=== PATIENT | male | born 1990 | race Caucasian/White ===

== ENCOUNTER 2017-06-07 17:42 | Emergency (ER) | payer OTHER, MEDICAID, SELFPAY ==
[2017-06-07 18:15] VITALS: BMI 33.5
--- NOTE | 2017-06-07 18:16 | XR_ITS ---
XR chest 2V Ordering Physician: Juanita Ray MD Patient Age: 27 years: Male HISTORY: ITS.REASON: chest pain chest discomfort pain TECHNIQUE: PA and lateral chest COMPARISON : No previous studies for comparison FINDINGS . No pneumothorax. No pleural effusion. Lungs well expanded and clear with no active disease. Heart mahogany and mediastinal structures satisfactory. . No acute chest wall findings and T-spine intact. I would only note that the first ribs bilaterally do take slightly medial course bilaterally. Doubt of significance but could contribute to thoracic outlet syndrome if symptoms of such are present IMPRESSION: No active disease No acute pulmonary findings . No pneumothorax nor pleural effusion Lungs clear. . . Minor observations in text
[2017-06-07 18:45] LABS: Basophils % 0.3 % (0.1-2.0); Eosinophils # 0.1 K/mm3 (0.0-0.4); Eosinophils % 1.1 % (0.1-12.0); Hematocrit 49.5 % (42.0-52.0); Hemoglobin 17.1 g/dL (14.1-18.0); Lymphocytes # 3.4 K/mm3 (0.7-4.5); Lymphocytes % 28.6 K/mm3 (10-50); Mean Corpuscular HGB Conc 34.6 g/dL (31.8-35.4); Mean Corpuscular Hemoglobin 29.4 pg (27.0-31.2); Mean Corpuscular Volume 85.1 fl (80-94); Mean Platelet Volume 8.1 fl (7.4-10.4); Monocytes # 0.7 K/mm3 (0.1-1.0); Monocytes % 5.9 % (1.7-9.3); Neutrophils # 7.7 K/mm3 (1.8-7.8); Neutrophils % 64.2 % (37.0-80.0); Platelet Count 226 K/mm3 (142-424); Red Blood Count 5.83 M/mm3 (4.60-6.20); Red Cell Distribution Width 12.6 % (11.5-17.5); White Blood Count 11.9 K/mm3 (4.8-10.8)
[2017-06-07 19:12] VITALS: BP 137/85; PULSE 87; RESP 18; TEMP 36.9; O2SAT 94; BMI 33.5
[2017-06-07 19:13] LABS: Alanine Aminotransferase 37 U/L (12-78); Albumin Level 4.3 gm/dL (3.4-5.0); Albumin/Globulin Ratio 1.3 (1.1-1.8); Alkaline Phosphatase 98 U/L (46-116); Anion Gap 12.8 mEq/L (5-15); Aspartate Amino Transferase 27 U/L (15-37); Bilirubin,Total 0.5 mg/dL (0.2-1.0); Blood Urea Nitrogen 13 mg/dL (7-18); CKMB Relative Index 1.5 U/L (0-4.0); Calcium 9.2 mg/dL (8.5-10.1); Carbon Dioxide 29 mmol/L (21.0-32.0); Chloride 102 mmol/L (98-107); Creatine Kinase 401 U/L (39-308); Creatine Kinase MB 6.1 mg/ml (0.0-3.6); Creatinine Clearance Estimated 157 mL/min (0-300); Creatinine,Serum 1.11 mg/dL (0.70-1.30); Estimated Glomerular Filt Rate 81 ml/min (>60); GFR (African American) 98 ML/MIN (>60); Globulin 3.2 gm/dl (1.3-3.2); Glucose 102 mg/dL (74-106); Potassium 3.8 mmoL/L (3.5-5.1); Sodium 140 mmol/L (136-145); Total Protein,Serum 7.5 gm/dL (6.4-8.2); Troponin I < 0.02 ng/ml (0.00-0.06)
--- NOTE | 2017-06-07 19:48 | [facility].EDCP ---
ED Disposition Clinical Impression: Atypical chest pain Disposition: Home, Self-Care Condition on Discharge: Good Instructions: DI for Atypical Chest Pain Additional Instructions: Rx Naproxen, recommend smoking cessation; see your nurse practitioner for follow up next week for recheck Referrals: Sonam Draper [Primary Care Provider] - - Critical Care Critical Care Time: No Attestation: On 06/07/17, the high probability of a clinically significant, sudden or life threatening deterioration of the following system(s) required my full and direct attention, intervention and personal management. The time I documented below is in addition to time spent performing reported procedures but includes the following listed in this critical care notation. Medical Decision Making Vital Signs: 06/07/17 19:12 06/07/17 20:08 Temperature 98.5 F Temperature Source Oral Pulse Rate 68 Pulse Rate [Left Brachial] 87 Respiratory Rate 18 20 Blood Pressure 121/75 Blood Pressure [Left Arm] 137/85 Blood Pressure Mean [Left Arm] 102 Blood Pressure Source Automatic Cuff Blood Pressure Source [Left Arm] Automatic Cuff Blood Pressure Position Sitting Blood Pressure Position [Left Arm] Sitting 02 Sat by Pulse Oximetry 94 L Oxygen Delivery Method Room Air Room Air - Lab Data Lab Results 06/07/17 18:30: WBC 11.9 H, RBC 5.83, Hgb 17.1, Hct 49.5, MCV 85.1, MCH 29.4, MCHC 34.6, RDW 12.6, Plt Count 226, MPV 8.1, Neut % (Auto) 64.2, Lymph % (Auto) 28.6, [place] % (Auto) 5.9, Eos % (Auto) 1.1, Baso % (Auto) 0.3, Neut # (Auto) 7.7, Lymph # (Auto) 3.4, [place] # (Auto) 0.7, Eos # (Auto) 0.1, Baso # (Auto) 0.0 06/07/17 18:30: Sodium 140, Potassium 3.8, Chloride 102, Carbon Dioxide 29, Anion Gap 12.8, BUN 13, Creatinine 1.11, Estimated Creat Clear 157, Estimated GFR 81, Est GFR ( Amer) 98, Glucose 102, Calcium 9.2, Total Bilirubin 0.5, AST 27, ALT 37, Alkaline Phosphatase 98, Total Creatine Kinase 401 H, CK-MB (CK-2) 6.1 H, CK-MB (CK-2) Rel Index 1.5, Troponin I < 0.02, Total Protein 7.5, Albumin 4.3, Globulin 3.2, Albumin/Globulin Ratio 1.3 Result diagrams: 06/07/17 18:30 06/07/17 18:30 - Radiology Data #1 Image(s): Chest Image Reviewed: Yes I reviewed the patient's radiology results, Yes I have reviewed radiologist's interpretation Preliminary Findings: Normal/NAD, No Infiltrates Seen, Normal Lung Inflation Hill, Normal Heart Size - ECG Data Tracing #1 I reviewed this ECG and interpreted as documented below: EKG normal sinus rhythm rate of 79 normal axis and intervals. No ectopy. No hypertrophy. ECG normal with no acute: arrhythmias, ischemia, conduction abnormalities, chamber hypertrophy (normal EKG) - Nate Inquiry Pt receiving controlled substance: No Chest Pain HPI - General Chief Complaint: Chest Pain Stated Complaint: Chest Pains for 2 Weeks Mode of Arrival: Ambulatory Limitations: No Limitations Description of Symptoms (Recalled from ER Triage Doc. by RN): chest pain x2 weeks; radiates to bilateral arms intermittantly; 2 ppd smoker - History of Present Illness HPI narrative: Atypical and positional musculoskeletal type chest pain to the left upper extremity ?2 weeks. Only cardiac risk factor is a heavy smoker. He has a chronic cough with no hemoptysis. No new cough. He is worried about pneumonia. No fever or chills. No symptoms. No vomiting. No diaphoresis. No shortness of breath dyspnea on exertion or calf pain. MD complaint: other (Sternal chest pain for the past 2 weeks. No fever or sputum production. Has chronic cough and is a heavy smoker at 2-1/2 packs per day. He is worried about pneumonia.) Duration: constant Pain location: left chest Severity: mild Quality: dull Pain radiation: LUE Relieving factors: rest Exacerbating factors: movement Treatments prior to or on arrival for Cardiac Chest Pain: none - Related Data Home Medications Medication Instructions Recorded Conf
--- NOTE | 2017-06-07 19:52 | ED_ITS ---
ED Disposition Clinical Impression: Atypical chest pain Disposition: Home, Self-Care Condition on Discharge: Good Instructions: DI for Atypical Chest Pain Additional Instructions: Rx Naproxen, recommend smoking cessation; see your nurse practitioner for follow up next week for recheck Referrals: Sonam Draper [Primary Care Provider] - - Critical Care Critical Care Time: No Attestation: On 06/07/17, the high probability of a clinically significant, sudden or life threatening deterioration of the following system(s) required my full and direct attention, intervention and personal management. The time I documented below is in addition to time spent performing reported procedures but includes the following listed in this critical care notation. Medical Decision Making Vital Signs: 06/07/17 19:12 06/07/17 20:08 Temperature 98.5 F Temperature Source Oral Pulse Rate 68 Pulse Rate [Left Brachial] 87 Respiratory Rate 18 20 Blood Pressure 121/75 Blood Pressure [Left Arm] 137/85 Blood Pressure Mean [Left Arm] 102 Blood Pressure Source Automatic Cuff Blood Pressure Source [Left Arm] Automatic Cuff Blood Pressure Position Sitting Blood Pressure Position [Left Arm] Sitting 02 Sat by Pulse Oximetry 94 L Oxygen Delivery Method Room Air Room Air - Lab Data Lab Results 06/07/17 18:30: WBC 11.9 H, RBC 5.83, Hgb 17.1, Hct 49.5, MCV 85.1, MCH 29.4, MCHC 34.6, RDW 12.6, Plt Count 226, MPV 8.1, Neut % (Auto) 64.2, Lymph % (Auto) 28.6, [place] % (Auto) 5.9, Eos % (Auto) 1.1, Baso % (Auto) 0.3, Neut # (Auto) 7.7 , Lymph # (Auto) 3.4, [place] # (Auto) 0.7, Eos # (Auto) 0.1, Baso # (Auto) 0.0 06/07/17 18:30: Sodium 140, Potassium 3.8, Chloride 102, Carbon Dioxide 29, Anion Gap 12.8, BUN 13, Creatinine 1.11, Estimated Creat Clear 157, Estimated GFR 81, Est GFR ( Amer) 98, Glucose 102, Calcium 9.2, Total Bilirubin 0.5 , AST 27, ALT 37, Alkaline Phosphatase 98, Total Creatine Kinase 401 H, CK-MB ( CK-2) 6.1 H, CK-MB (CK-2) Rel Index 1.5, Troponin I < 0.02, Total Protein 7.5, Albumin 4.3, Globulin 3.2, Albumin/Globulin Ratio 1.3 Result diagrams: 06/07/17 18:30 06/07/17 18:30 - Radiology Data #1 Image(s): Chest Image Reviewed: Yes I reviewed the patient's radiology results, Yes I have reviewed radiologist's interpretation Preliminary Findings: Normal/NAD, No Infiltrates Seen, Normal Lung Inflation [place] , Normal Heart Size - ECG Data Tracing #1 I reviewed this ECG and interpreted as documented below: EKG normal sinus rhythm rate of 79 normal axis and intervals. No ectopy. No hypertrophy. ECG normal with no acute: arrhythmias, ischemia, conduction abnormalities, chamber hypertrophy (normal EKG) - Nate Inquiry Pt receiving controlled substance: No Chest Pain HPI - General Chief Complaint: Chest Pain Stated Complaint: Chest Pains for 2 Weeks Mode of Arrival: Ambulatory Limitations: No Limitations Description of Symptoms (Recalled from ER Triage Doc. by RN): chest pain x2 weeks; radiates to bilateral arms intermittantly; 2 ppd smoker - History of Present Illness HPI narrative: Atypical and positional musculoskeletal type chest pain to the left upper extremity ?2 weeks. Only cardiac risk factor is a heavy smoker. He has a chronic cough with no hemoptysis. No new cough. He is worried about pneumonia. No fever or chills. No symptoms. No vomiting. No diaphoresis. No shortnes
[2017-06-07 20:08] VITALS: BP 121/75; PULSE 68; RESP 20; O2SAT 95
== END 2017-06-07 20:11 | disposition home or self-care (01) ==
PROVIDERS: Emergency Provider Emergency Medicine; Family Provider Nurse Practitioner Family; PCP Nurse Practitioner Family
DX: R07.89 Other chest pain (principal); F17.210 Nicotine dependence, cigarettes, uncomplicated; Z88.1 Allergy status to other antibiotic agents; Z79.899 Other long term (current) drug therapy
CPT/HCPCS: 71046; 80053; 82550; 82553; 84484; 85025; 93005; 99283

== ENCOUNTER → 2017-06-17 08:28 | Day surgery (SDC) | payer OTHER, MEDICAID, SELFPAY ==
[2017-06-16 14:08] VITALS: BMI 33.5
[2017-06-17 08:53] VITALS: BP 139/76; PULSE 110; RESP 20; TEMP 36.8; O2SAT 99
--- NOTE | 2017-06-17 09:25 | P.PN_ITS ---
[facility] Anesthesia Checklist - Patient Identification Patient Identification: Arm Band - Structural Data Admitted From: Home Planned Operative Procedure/s: vasectomy Consent for Planned Operative Procedure(s) Verified: Yes Verified Documents: Surgical Consent, History and Physical - NPO Status Verified Time NPO: 00:00 - Additional verifications Anesthesia Reactions: No - Airway Assessment C-Spine Mobility Assessed: Yes (mp2) TMJ Mobility Assessed: Yes Dentition: Good Dentition - Neurological Assessment Level of Consciousness: Awake, Alert - Anesthesia Plan Anesthesia Risk discussed: Yes Anesthesia Plan: Verified ASA Class: II Anesthesia Type: General - Preoperative Comments Pre-Operative Comments: pt requests general anesthesia [facility] Anesthesia HX I have reviewed the patient's past medical history: Yes Medical History: Denies:: Cancer, Diabetes Mellitus Type 1, Diabetes Mellitus Type 2, MRSA, Seizures Other Medical History: Denies: Blood Transfusion Reaction Comment: smoker Amputation: No Fractures: No Comment: wisdom teeth *Family Hx:: Cancer, Coronary Artery Disease, Diabetes, Hyperlipidemia, Kidney Disease
== END ==
PROVIDERS: Family Provider Nurse Practitioner Family; PCP Nurse Practitioner Family; Visit Provider Urology
PROC: (CPT 55250; principal; 2017-06-17 10:00)
DX: Z30.2 Encounter for sterilization (principal)
CPT/HCPCS: 55250; 96374

== ENCOUNTER 2024-06-17 13:02 | Outpatient (CLI) | payer MEDICAID, SELFPAY ==
--- NOTE | 2024-06-17 13:06 | XR_ITS ---
FINAL REPORT TECHNIQUE: Chest PA & Lateral CLINICAL HISTORY: CHEST PAIN COMPARISON: None FINDINGS: 2 views of the chest were performed. The heart size is normal. The mediastinum is within normal limits. There is no acute cardiopulmonary process. There are no pleural effusions. There is no pneumothorax. The bony thorax appears intact. IMPRESSION: No acute cardiopulmonary process. Reviewed, Interpreted and Dictated by Aldo Givens MD Transcribed by Fatmata Sood Authenticated and . [facility]
== END 2024-06-17 23:59 | disposition home or self-care (01) ==
LOC: RAD 13:03
PROVIDERS: PCP Nurse Practitioner Family; Visit Provider Nurse Practitioner Family
DX: R07.9 Chest pain, unspecified (principal)
CPT/HCPCS: 71046